=== PATIENT | female | born 1940 | race Caucasian/White ===

== ENCOUNTER 2024-08-05 10:00 | Outpatient (RCR) | payer MEDICARE, SELFPAY | END 2024-08-05 23:59 | disposition home or self-care (01) | LOC: PT 10:00 | PROVIDERS: Visit Provider Nurse Practitioner Family | DX: M25.511 Pain in right shoulder (principal); M25.512 Pain in left shoulder | CPT/HCPCS: 97110; 97163; 97530 ==

== ENCOUNTER 2024-08-19 10:48 | Outpatient (RCR) | payer MEDICARE, SELFPAY | END 2024-08-24 11:01 | disposition home or self-care (01) | LOC: PT 10:48 | PROVIDERS: Visit Provider Nurse Practitioner Family | DX: M25.511 Pain in right shoulder (principal); M25.512 Pain in left shoulder | CPT/HCPCS: 97110; 97530 ==

== ENCOUNTER 2025-04-07 11:00 | Outpatient (RCR) | payer MEDICARE, SELFPAY | END 2025-04-07 23:59 | disposition home or self-care (01) | LOC: PT.CARL 11:00 | PROVIDERS: Visit Provider Nurse Practitioner Family | DX: M25.551 Pain in right hip (principal); M25.552 Pain in left hip | CPT/HCPCS: 97161 ==